=== PATIENT | female | born 2000 | race Caucasian/White ===

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

== ENCOUNTER 2020-02-16 06:06 | Inpatient (IN) | payer MEDICAID, OTHER ==
[~2020-02-16] VITALS: Ht 154.9 cm; Wt 67.6 kg
[2020-02-16] MEDS ORDERED: CARBOPROST TROMETHAMINE 250 MCG/ML AMPUL IM PRN (07:00)
[2020-02-16] MEDS ORDERED: BUTORPHANOL TARTRATE 2 MG/ML VIAL IV PRN ×2 (07:00→15:15)
[2020-02-16] MEDS ORDERED: LIDOCAINE HCL 1% 20ML VIAL (Pyxis) INJ INFIL SCH (07:00)
[2020-02-16] MEDS ORDERED: METHYLERGONOVINE MALEATE 0.2 MG/ML IM PRN (07:00)
[2020-02-16] MEDS ORDERED: DEXT 5%/LR + PITOCIN 20UNITS/L 1,000 ML IV SCH ×2 (07:00→15:45)
[2020-02-16] MEDS ORDERED: NALOXONE HCL 0.4 MG/ML 1ML VIAL IM PRN (07:00)
[2020-02-16] MEDS ORDERED: PENICILLIN G POTASSIUM 5 MMU in DEXT 5% WATER 100 ML IV SCH (07:00)
[2020-02-16] MEDS ORDERED: LACTATED RINGERS 1,000 ML IV SCH (07:00)
[2020-02-16 07:18] LABS: BASOPHILS % 0.5 % (0.0-2.0); EOSINOPHILS % 0.7 % (0.0-5.0); HEMATOCRIT. 25.3 % (36.0-48.0); HEMOGLOBIN. 7.6 g/dL (12.0-16.0); MEAN CORPUSCULAR HEMOGLOBIN 20.8 pg (28.0-32.0); MEAN CORPUSCULAR VOLUME 68.7 fL (81.0-99.0); MONOCYTES % 4.7 % (2.0-8.0); NEUTROPHILS % 67.1 % (40.0-76.0); PLATELET 163 x1000/uL (130-400); RED BLOOD CELL COUNT 3.67 mill/uL (4.2-5.4); RED CELL DISTRIBUTION WIDTH 20.5 % (11.6-14.6)
[2020-02-16 07:27] LABS: PARTIAL THROMBOPLASTIN TIME 30.2 sec (23.4-31.0); PROTHROMBIN TIME 10.5 sec (9.6-11.0)
[2020-02-16 07:29] LABS: CLARITY URINE TURBID (CLEAR); COLOR URINE ORANGE (YELLOW); KETONES URINE 3+ (NEGATIVE); LEUKOCYTE ESTERASE URINE 3+ (NEGATIVE); NITRITE URINE POSITIVE (NEGATIVE); OCCULT BLOOD URINE TRACE (NEGATIVE); PH URINE 6.5 (4.5-8.0); PROTEIN URINE 1+ (NEGATIVE); SPECIFIC GRAVITY URINE 1.026 (1.005-1.030)
[2020-02-16 07:31] LABS: *AMPHETAMINES SCREEN URINE NEGATIVE (NEGATIVE); *BARBITURATES SCREEN URINE NEGATIVE (NEGATIVE); *BENZODIAZEPINES SCREEN URINE NEGATIVE (NEGATIVE); *COCAINE SCREEN URINE NEGATIVE (NEGATIVE); CANNABINOID URINE SCREEN NEGATIVE (NEGATIVE); METHADONE URINE SCREEN NEGATIVE (NEGATIVE); OPIATES URINE SCREEN NEGATIVE (NEGATIVE); PHENCYCLIDINE URINE SCREEN NEGATIVE (NEGATIVE)
[2020-02-16 07:49] LABS: HEPATITIS B SURFACE ANTIGEN NEGATIVE
[2020-02-16] MEDS: LACTATED RINGERS 1,000 ML IV SCH ×2 (08:05→11:13)
[2020-02-16 08:42] LABS: PLATELET ESTIMATE NORMAL
[2020-02-16] MEDS ORDERED: CITRIC ACID/SODIUM CITRATE SOLN 30ML UDC PO ONE (08:45)
[2020-02-16] MEDS ORDERED: PENICILLIN G POTASSIUM 2.5 MMU in DEXTROSE 5% WATER 50 ML IV SCH (11:00)
[2020-02-16] MEDS ORDERED: EPHEDRINE SULFATE 50MG/ML VIAL ONE (11:28)
[2020-02-16] MEDS ORDERED: CEFAZOLIN SODIUM 1000MG/VIAL ONE (11:28)
[2020-02-16] MEDS ORDERED: OXYTOCIN 10 UNITS/ML 1ML ONE (11:28)
[2020-02-16] MEDS ORDERED: FENTANYL CITRATE/PF 50MCG/ML 2ML VIAL ONE (11:28)
[2020-02-16] MEDS ORDERED: MORPHINE SULFATE/PF 1MG/ML 10ML AMP ONE (11:28)
[2020-02-16] MEDS ORDERED: GLYCOPYRROLATE 0.2 MG/ML 2ML VIAL ONE (11:29)
[2020-02-16] MEDS ORDERED: PHENYLEPHRINE HCL 10 MG/ML 1ML (IV VIAL) IV ONE (11:29)
[2020-02-16] MEDS ORDERED: METOCLOPRAMIDE HCL 10MG/2ML VIAL ONE (11:29)
[2020-02-16] MEDS ORDERED: ONDANSETRON HCL 4MG/2ML INJ ONE (11:31)
[2020-02-16] MEDS ORDERED: DIPHENHYDRAMINE 50MG/ML VIAL ONE (14:45)
[2020-02-16] MEDS ORDERED: NALOXONE HCL 0.4 MG/ML 1ML VIAL IV PRN (15:15)
[2020-02-16] MEDS ORDERED: DIPHENHYDRAMINE 50MG/ML VIAL IV PRN (15:15)
[2020-02-16] MEDS ORDERED: DIPHENHYDRAMINE 25MG CAPSULE PO PRN (15:45)
[2020-02-16] MEDS ORDERED: IBUPROFEN 400MG TABLET PO PRN (15:45)
[2020-02-16] MEDS ORDERED: RHO(D) IMMUNE GLOBULIN 300 MCG/SYR IM PRN (15:45)
[2020-02-16] MEDS ORDERED: ACETAMINOPHEN WITH CODEINE 300/30MG TABLET PO PRN (15:45)
[2020-02-16] MEDS ORDERED: LANOLIN OINT 7GM TUBE TOP PRN (15:45)
[2020-02-16] MEDS ORDERED: ONDANSETRON HCL 4MG/2ML INJ IV PRN (15:45)
[2020-02-16] MEDS ORDERED: METHYLERGONOVINE MALEATE 0.2 MG/ML ONE (17:06)
[2020-02-16 19:40] VITALS: BP 111/65
[2020-02-16] MEDS ORDERED: DOCUSATE SODIUM 100MG CAPSULE PO SCH (21:00)
[2020-02-16] MEDS: KETOROLAC 30MG/ML VIAL IV SCH (22:43)
[2020-02-17 00:10] VITALS: BP 104/69
[2020-02-17 04:35] VITALS: BP 95/56
[2020-02-17] MEDS: KETOROLAC 30MG/ML VIAL IV SCH (05:24)
[2020-02-17] MEDS ORDERED: KETOROLAC 30MG/ML VIAL IV SCH (06:00)
[2020-02-17 06:57] LABS: BASOPHILS % 0.3 % (0.0-2.0); EOSINOPHILS % 0.3 % (0.0-5.0); LYMPHOCYTES % 14.8 % (20.0-50.0); MEAN CORPUSCULAR HEMOGLOBIN 20.9 pg (28.0-32.0); MEAN CORPUSCULAR VOLUME 68.8 fL (81.0-99.0); MEAN PLATELET VOLUME 8.8 fl (7.4-10.4); MONOCYTES % 5.2 % (2.0-8.0); NEUTROPHILS % 79.4 % (40.0-76.0); PLATELET 153 x1000/uL (130-400); RED BLOOD CELL COUNT 2.76 mill/uL (4.2-5.4)
[2020-02-17 07:01] LABS: HEMOGLOBIN. 5.8 g/dL (12.0-16.0)
[2020-02-17 08:00] VITALS: BP 98/58
[2020-02-17 16:00] VITALS: BP 101/61
[2020-02-17] MEDS: PRENATAL VIT/FE FUMARATE/FA TABLET PO SCH (18:20)
[2020-02-17 20:00] VITALS: BP 101/58
[2020-02-17] MEDS ORDERED: TETANUS, DIPHTHERIA, PERTUSSIS VAC/PF 0.5ML (>7YR OLD) IM ONE (21:00)
[2020-02-17] MEDS: HYDROCODONE/ACETAMINOPHEN 5/325MG TABLET PO PRN (22:06)
[2020-02-18] VITALS: BP 100/66
[2020-02-18 04:00] VITALS: BP 108/74
[2020-02-18] MEDS: HYDROCODONE/ACETAMINOPHEN 5/325MG TABLET PO PRN (06:42)
[2020-02-18 06:43] LABS: MEAN CORPUSCULAR HEMOGLOBIN 21.1 pg (28.0-32.0); MEAN CORPUSCULAR VOLUME 69.8 fL (81.0-99.0); MEAN PLATELET VOLUME 9.2 fl (7.4-10.4); PLATELET 180 x1000/uL (130-400); RED BLOOD CELL COUNT 2.34 mill/uL (4.2-5.4); RED CELL DISTRIBUTION WIDTH 20.7 % (11.6-14.6)
[2020-02-18 07:06] LABS: HEMOGLOBIN. 4.9 g/dL (12.0-16.0)
[2020-02-18 07:07] LABS: HEMATOCRIT. 16.3 % (36.0-48.0)
[2020-02-18 08:00] VITALS: BP 100/68
[2020-02-18] MEDS ORDERED: FERR325T6 MT (08:16)
[2020-02-18] MEDS ORDERED: IBUP-2028 PO (08:16)
[2020-02-18] MEDS ORDERED: DOCU-150 PO (08:16)
[2020-02-18] MEDS ORDERED: INFLUENZA VACCINE 05/PF 0.5 ML VIAL IM ONE (10:00)
[2020-02-18 11:34] LABS: NUCLEATED RED BLOOD CELLS 2 /100 WBC; PLATELET ESTIMATE NORMAL
[2020-02-18 11:59] VITALS: BP 100/68
[2020-02-18] MEDS: PRENATAL VIT/FE FUMARATE/FA TABLET PO SCH (11:59)
== END 2020-02-18 12:30 | disposition home or self-care (01) | DRG 540 ==
LOC: 8 EST LDRP 06:06 → OBSVTOIN 06:06 → 8EST 17:29
PROVIDERS: ADMIT Obstetrics & Gynecology; ATTEND Obstetrics & Gynecology
PROC: 10D00Z1 Extraction of Products of Conception, Low, Open Approach (ICD-10-PCS; principal; 2020-02-16)
DX: O32.1XX2 Maternal care for breech presentation, fetus 2 (principal); O36.5930 Maternal care for other known or suspected poor fetal growth, third trimester, not applicable or unspecified; D62 Acute posthemorrhagic anemia; O90.81 Anemia of the puerperium; Z20.828 Contact with and (suspected) exposure to other viral communicable diseases; Z3A.37 37 weeks gestation of pregnancy; Z37.2 Twins, both liveborn; Z53.29 Procedure and treatment not carried out because of patient's decision for other reasons; O30.043 Twin pregnancy, dichorionic/diamniotic, third trimester
CPT/HCPCS: 36415; 80305; 81003; 85025; 86592; 86703; 86762; 86850; 86900; 86920; 87077; 87340; 87426; 88307; 90686; 90715; 99281; J0595; J0690; J1200; J1885; J2210; J2274; J2370; J2405; J2540; J2590; J2765; J3010; J3490; J7060; J7120; A4315